=== PATIENT | female | born 1945 | race Hispanic/Latino ===

== ENCOUNTER 2024-10-26 09:57 | Outpatient (CLI) | payer OTHER, MEDICAID | END 2024-10-26 09:58 | disposition home or self-care (01) | LOC: CSHMAMMO 09:57 | PROVIDERS: ATTEND Family Medicine | DX: Z12.31 Encounter for screening mammogram for malignant neoplasm of breast (principal); N95.9 Unspecified menopausal and perimenopausal disorder; M85.851 Other specified disorders of bone density and structure, right thigh; M85.852 Other specified disorders of bone density and structure, left thigh | CPT/HCPCS: 77063; 77067; 77080 ==

== ENCOUNTER 2024-12-15 10:06 | Outpatient (CLI) | payer OTHER, MEDICAID | END 2024-12-15 10:07 | disposition home or self-care (01) | LOC: CSHULT 10:06 | PROVIDERS: ATTEND Family Medicine | DX: R10.13 Epigastric pain (principal) | CPT/HCPCS: 76705 ==